=== PATIENT | female | born 1930 | race Caucasian/White ===

== ENCOUNTER 2020-01-07 11:27 | Inpatient (IN) | payer MEDICARE ==
[2020-01-07] MEDS ORDERED: Polyethylene Glycol 3350 Powder 17 GM Packet PO PRN (14:40)
[2020-01-07] MEDS ORDERED: Sodium Chloride 0.9% 10 ML Syringe FLUSH PRN (14:40)
[2020-01-07] MEDS ORDERED: Ondansetron 4 MG/2 ML SDV IV PRN (14:40)
[2020-01-07] MEDS ORDERED: Acetaminophen 325 MG Tab PO PRN (14:40)
[2020-01-07] MEDS ORDERED: Sodium Chloride 0.9% 1,000 ML IV SCH (14:45)
[2020-01-07] MEDS ORDERED: Non-Formulary Medication 1 Each (Melatonin/Pyridoxine Hcl (B6) [Melatonin 3 Mg Tablet] 3 M PO PRN (15:00)
[2020-01-07] MEDS ORDERED: Melatonin 3 MG Tab PO PRN (15:06)
--- NOTE | 2020-01-07 15:26 | PCM.HP.2 ---
H&P History of Present Illness - General Date of Service: 01/07/20 Admit Problem/Dx: Admission Diagnosis/Problem Admission Diagnosis/Problem Anemia Source of Information: Patient, Old Records, Provider, RN Notes Reviewed History Limitations: Reports: No Limitations - History of Present Illness Initial Comments - Free Text/Narative: Ms. Villafuerte is an 89-year-old woman who was admitted [facility] a [facility] for further evaluation and management of anemia. Was recently hospitalized in [place] with sepsis and associated organ dysfunction. 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 During her hospitalization there was noted to have pancytopenia, thought to be somewhat secondary to anaplasmosis, although further evaluation was recommended. Laboratory studies were obtained today and she was found to have a hemoglobin of 5.4 which is a significant drop from her discharge level. Platelet count had actually improved to 39,000 and white blood cell count remains low. She denies recent hematemesis, hematuria, melena, or hematochezia. She does feel somewhat weak and lightheaded and more short of breath than usual. Appetite is been good and she denies fever or chills. - Related Data Allergies/Adverse Reactions: Allergies Allergy/AdvReac Type Severity Reaction Status Date / Time No Known Allergies Allergy Verified 01/07/20 14:52 Home Medications: Home Meds Acetaminophen [Tylenol] 650 mg PO TID 01/07/20 [History] Alendronate Sodium 70 mg PO Q7D 01/07/20 [History] Amiodarone [Cordarone] 200 mg PO DAILY 01/07/20 [History] Aspirin [Halfprin] 81 mg pe PO DAILY 01/07/20 [History] Calcium Carbonate [Calcium] 600 mg PO BID 01/07/20 [History] Doxycycline [Doxycycline Hyclate] 100 mg PO Q12HR 01/07/20 [History] Ergocalciferol (Vitamin D2) [Vitamin D2] 50,000 units PO Q7D 01/07/20 [History] Meclizine [Antivert] 12.5 mg PO QID PRN 01/07/20 [History] Melatonin/Pyridoxine HCl (B6) [Melatonin 3 mg Tablet] 3 mg PO BEDTIME PRN [History] Nitroglycerin [Nitrostat] 0.4 mg SL ASDIRECTED PRN 01/07/20 [History] Omeprazole 20 mg PO DAILY 01/07/20 [History] atorvaSTATin [Lipitor] 80 mg PO BEDTIME 01/07/20 [History] Past Medical History HEENT History: Reports: Cataract, Impaired Vision Cardiovascular History: Reports: [place], Stents Respiratory History: Reports: Pneumonia, Recurrent Gastrointestinal History: Reports: None FRENCH BINDER History: Reports: Musculoskeletal History: Reports: Arthritis, Fracture - Past Surgical History HEENT Surgical History: Reports: Cataract Surgery Other HEENT Surgeries/Procedures: Cataract in both eyes Respiratory Surgical History: Reports: None GI Surgical History: Reports: None Social & Family History - Tobacco Use Smoking Status *Q: Former Smoker Years of Tobacco use: 73 Packs/Tins Daily: 0.5 Used Tobacco, but Quit: Yes Month/Year Tobacco Last Used: 2016 Second Hand Smoke Exposure: No - Caffeine Use Caffeine Use: Reports: Coffee, Tea - Recreational Drug Use Recreational Drug Use: No H&P Review of Systems - Review of Systems: Review Of Systems: See Below General: Reports: Malaise, Weakness. Denies: Fever, Chills HEENT: Reports: No Symptoms Pulmonary: Reports: Shortness of Breath. Denies: Wheezing, Pleuritic Chest Pain , Cough, Sputum, Hemoptysis Cardiovascular: Reports: Dyspnea on Exertion, Edema, Lightheadedness. Denies: Chest Pain, Palpitations, Orthopnea, PND, Syncope Gastrointestinal: Reports: No Symptoms Genitourinary: Reports: No Symptoms Musculoskeletal: Reports: No Symptoms Skin: Reports: No Symptoms Psychiatric: Reports: No Symptoms Neurological: Reports: No Symptoms Hematologic/Lymphatic: Reports: No Symptoms Immunologic: Reports: No Symptoms Exam - Exam Exam: See Below - Vital Signs Vital Signs: Last Vital Signs Temp 97.7 F 01/07/20 14:40 Pulse 79 01/07/20 14:40 Resp 18 01/07/20 14:40 BP 107/55 L 01/07/20 14:40 Pulse Ox 94 L 01/07/20 14:40 - Exam Quality Assessment: DVT Prophylaxis General: Alert, Oriented, Cooperative, Mild Distress HEENT: Conjunctiva Clear, Hearing Intact, Mucosa Moist & [place], Normal Nasal Septum, Posterior Pharynx Clear, Pupils Equal Neck: Supple, Trachea Midline, +2 Carotid Pulse wo Bruit Lungs: Clear to Auscultation, Normal Respiratory Effort Cardiovascular: Regular Rate, Regular Rhythm, Normal S1, Normal S2. No: Systolic Murmur, Diastolic Murmur GI/Abdominal Exam: Soft, Non-Tender, No Organomegaly, No Distention Back Exam: Normal Inspection, Full Range of Motion Extremities: Non-Tender, Pedal Edema Skin: Warm, Dry, Intact Neurological: Cranial Nerves Intact, Strength Equal Bilateral, Normal Speech, Normal Tone, Sensation Intact. No: Focal Deficit Neuro Extensive - Mental Status: Alert, Oriented x3, Normal Mood/Affect, Normal Cognition, Memory Intact - Patient Data Lab Results Last 24 hrs: Laboratory Results - last 24 hr 01/07/20 01/07/20 01/07/20 Range/Units 11:33 11:33 15:05 WBC 2.7 L (4.5-11.0) K/uL RBC 1.74 L (3.30-5.50) M/uL Hgb 5.4 L* (12.0-15.0) g/dL Hct 17.6 L (36.0-48.0) % MCV 101 H (80-98) fL MCH 31 (27-31) pg MCHC 31 L (32-36) % Plt Count 39 L (150-400) K/uL Percent Retic 1.1 (0.5-1.5) % Sodium 145 (140-148) mmol/L Potassium 3.6 (3.6-5.2) mmol/L Chloride 107 (100-108) mmol/L Carbon Dioxide 28 (21-32) mmol/L Anion Gap 10.0 (5.0-14.0) mmol/L BUN 43 H (7-18) mg/dL Creatinine 1.9 H (0.6-1.0) mg/dL Est Cr Clr Drug Dosing TNP Estimated GFR (MDRD) 25 L (>60) Glucose 103 (74-106) mg/dL Calcium 6.4 L* (8.5-10.1) mg/dL Result Diagrams: 01/07/20 11:33 01/07/20 15:05 Sepsis Event Note - Focused Exam Vital Signs: Vital Signs Temp Pulse Resp BP Pulse Ox 01/07/20 14:40 97.7 F 79 18 107/55 L 94 L Date Exam was Performed: 01/07/20 Time Exam was Performed: 17:36 *Q Meaningful Use (ADM) - VTE *Q VTE Pharmacological Contraindications *Q: Active Hemorrhage - VTE Risk Assess *Q Each Risk Factor Represents 1 Point: None Total Score 1 Point Risk Factors: 0 Each Risk Factor Represents 2 Points: None Total Score 2 Point Risk Factors: 0 Each Risk Factor Represents 3 Points: Age 75 Years or Greater Total Score 3 Point Risk Factors: 3 Each Risk Factor Represents 5 Points: None Total Score 5 Point Risk Factors: 0 Venous Thromboembolism Risk Factor Score *Q: 3 Problem List Initiated/Reviewed/Updated: Yes Orders Last 24hrs: Active Orders 24 hr Category Date Time Status Patient Status [ADT] Routine ADT 01/07/20 14:40 Active Ambulate [RC] QID Care 01/07/20 14:40 Active Height and Weight [RC] DAILY Care 01/07/20 14:40 Active Intake and Output [RC] QSHIFT Care 01/07/20 14:40 Active Notify Provider Vital Signs [RC] ASDIRECTED Care 01/07/20 14:40 Active Oxygen Therapy [RC] PRN Care 01/07/20 14:40 Active Peripheral IV Care [RC] . DIRECTED Care 01/07/20 14:42 Active Up With Assistance [RC] ASDIRECTED Care 01/07/20 14:40 Active Up to Chair [RC] QID Care 01/07/20 14:40 Active VTE/DVT Education [RC] Per Unit Routine Care 01/07/20 14:40 Active Vital Signs [RC] Q4H Care 01/07/20 14:40 Active PT Evaluation and Treatment [CONS] Routine Cons 01/07/20 14:40 Active Clear Liquid Diet [DIET] Diet 01/07/20 Lunch Active BASIC METABOLIC PANEL,BMP [CHEM] Timed Lab 01/08/20 05:00 Ordered CBC WITH AUTO DIFF [HEME] AM Lab 01/08/20 05:11 Ordered COMPREHENSIVE METABOLIC PN,CMP [CHEM] Stat Lab 01/07/20 15:05 Received FERRITIN [CHEM] Stat Lab 01/07/20 15:05 Received FOLIC ACID [CHEM] Stat Lab 01/07/20 15:05 Received HGB [HEMOGLOBIN] [HEME] Stat Lab 01/07/20 22:00 Ordered IRON/TIBC [CHEM] Stat Lab 01/07/20 15:05 Received LACTATE DEHYDROGENASE,LDH [CHEM] Stat Lab 01/07/20 15:05 Received RED BLOOD CELLS LP [BBK] Stat Lab 01/07/20 14:44 Ordered TYPE AND SCREEN [BBK] Stat Lab 01/07/20 14:44 Ordered VITAMIN B12 [CHEM] Stat Lab 01/07/20 15:05 Received Acetaminophen [Tylenol] Med 01/07/20 14:40 Active 650 mg PO Q4H PRN Amiodarone [Cordarone] Med 01/08/20 09:00 Active 200 mg PO DAILY Calcium Gluconate 2 gm Med 01/07/20 15:24 Ordered Sodium Chloride 0.9% [Normal Saline] 100 ml IV ONETIME Doxycycline [Vibramycin] Med 01/07/20 21:00 Active 100 mg PO BID Melatonin Med 01/07/20 15:06 Active 3 mg PO BEDTIME PRN Ondansetron [Zofran] Med 01/07/20 14:40 Active 4 mg IV Q4H PRN Pantoprazole [ProTONIX IV] Med 01/07/20 16:00 Active 40 mg IV Q12H Sodium Chloride 0.9% [Normal Saline] 1,000 ml Med 01/07/20 14:45 Active IV ASDIRECTED Sodium Chloride 0.9% [Saline Flush] Med 01/07/20 14:40 Active 10 ml FLUSH ASDIRECTED PRN atorvaSTATin [Lipitor] Med 01/07/20 21:00 Active 80 mg PO BEDTIME polyethylene glycoL 3350 [MiraLAX] Med 01/07/20 14:40 Active 17 gm PO DAILY PRN Peripheral IV Insertion Adult [OM.PC] Routine Oth 01/07/20 14:40 Ordered Sequential Compression Device [OM.PC] Per Unit Routine Oth 01/07/20 14:41 Ordered Transfuse Red Blood Cells [COMM] Stat Oth 01/07/20 14:44 Ordered VTE Pharmacological Contraindications [AST] Per Unit Oth 01/07/20 14:40 Ordered Routine Resuscitation Status Routine Resus Stat 01/07/20 14:40 Ordered Medication Orders Acetaminophen (Tylenol) 650 mg PO Q4H PRN PRN Reason: Pain (Mild 1-3)/fever Amiodarone HCl (Cordarone) 200 mg PO DAILY PIETRO Atorvastatin Calcium (Lipitor) 80 mg PO BEDTIME PIETRO Doxycycline Hyclate (Vibramycin) 100 mg PO BID PIETRO Sodium Chloride (Normal Saline) 1,000 mls @ 75 mls/hr IV ASDIRECTED PIETRO Calcium Gluconate 2 gm/ Sodium (Chloride) 120 mls @ 100 mls/hr IV ONETIME ONE Stop: 01/07/20 16:35 Melatonin (Melatonin) 3 mg PO BEDTIME PRN PRN Reason: SLEEP Ondansetron HCl (Zofran) 4 mg IV Q4H PRN PRN Reason: Nausea/Vomiting Pantoprazole Sodium (Protonix Iv) 40 mg IV Q12H PIETRO Polyethylene Glycol (Miralax) 17 gm PO DAILY PRN PRN Reason: Constipation Sodium Chloride (Saline Flush) 10 ml FLUSH ASDIRECTED PRN PRN Reason: Keep Vein Open Assessment/Plan Comment:: ASSESSMENT AND PLAN SEVERE ANEMIA-hemoglobin of 5.4 today. Anemia noted during recent hospitalization for sepsis, but not severe is noted today. It is present in the setting of pancytopenia with associated thrombocytopenia and leukopenia. Reticulocyte count is low, iron levels, B12, and folic acid within normal range. Suspect underlying myelodysplastic syndrome. No evidence of recent bleeding or hemolysis. -Transfuse 1 unit of red blood cells -1 unit of red blood cells on hold -Recheck hemoglobin level after transfusion -IV fluids for hydration PANCYTOPENIA-as above -Outpatient follow-up with hematology RECENT HOSPITALIZATION FOR SEPSIS/ANAPLASMOSIS-she currently is afebrile, no evidence of active infection MAINTENANCE ISSUES -DVT prophylaxis; SCUDs, hold on anticoagulation because of thrombocytopenia and anemia -GI prophylaxis; Protonix -Mayo catheter; not indicated -Nutrition; regular diet -Nicotine dependence; not required CODE STATUS-FULL CODE ADMISSION STATUS-patient will be admitted to inpatient status, expect at least a 2 night hospital stay for evaluation and management of problems as outlined above. At the time of this admission I do not reasonably expected evaluation and management of this problem will require more than a 96 hour hospital stay. DISPOSITION-anticipate discharge to home after the hospital stay. PRIMARY CARE PROVIDER-Dr. Gonzalez - Mortality Measure Prognosis:: Good
[2020-01-07] MEDS ORDERED: Calcium Gluconate 2 GM in Sodium Chloride 0.9% 100 ML IV ONE ×2 (16:00→22:00)
[2020-01-07] MEDS: Pantoprazole 40 MG Vial IV SCH (18:03)
[2020-01-07] MEDS ORDERED: Albuterol/Ipratropium 3.0-0.5 MG/3 ML Neb Soln NEB PRN (19:12)
[2020-01-07] MEDS ORDERED: Non-Formulary Medication 1 Each (Atorvastatin [Lipitor] 80 MG) PO SCH (21:00)
[2020-01-07] MEDS: atorvaSTATin 20 MG Tab PO SCH (21:14)
[2020-01-07] MEDS: Doxycycline 100 MG Cap PO SCH (21:14)
[2020-01-07] MEDS: Benzonatate 100 MG Cap PO PRN (21:28)
--- NOTE | 2020-01-08 02:11 | PCM.SN.2 ---
- Free Text/Narrative Note: January 07, 2020 at 22:40 call from [address] [place] [address] O: 2200 recheck of hemoglobin is 7.3 vital signs 36.3-61-16 B\P 107/43 A: anemia P: give one unit of RBC hold IV fluids while blood transfusion is infusing recheck hemoglobin in am.
[2020-01-08] MEDS: Pantoprazole 40 MG Vial IV SCH ×2 (03:05→16:50)
[2020-01-08] MEDS ORDERED: Calcium Gluconate 2 GM in Sodium Chloride 0.9% 100 ML IV ONE (05:43)
[2020-01-08] MEDS: Doxycycline 100 MG Cap PO SCH ×2 (08:37→20:31)
[2020-01-08] MEDS: Amiodarone 200 MG Tab PO SCH (08:37)
[2020-01-08] MEDS: Lactobacillus Rhamnosus GG (Probiotic) Cap PO SCH ×2 (13:20→20:31)
[2020-01-08] MEDS ORDERED: Dimethicone 20%/Zinc Oxide 25% 56 GM Spray Bottle TOP PRN (13:22)
[2020-01-08] MEDS ORDERED: Atropine/Diphenoxylate 0.025-2.5 MG Tab PO PRN (14:40)
--- NOTE | 2020-01-08 14:47 | PCM.PN ---
- General Info Date of Service: 01/08/20 Subjective Update: Ms. Villafuerte has felt moderately improved since admission. Nausea vomiting has resolved, she continues to have watery diarrhea. Hemoglobin stable following transfusion of 2 units of red blood cells yesterday, continues to experience thrombocytopenia and leukopenia. Functional Status: Reports: Tolerating Diet, Ambulating, Urinating - Review of Systems General: Reports: Weakness. Denies: Fever, Chills Pulmonary: Reports: No Symptoms Cardiovascular: Reports: No Symptoms Gastrointestinal: Reports: No Symptoms - Patient Data Vitals - Most Recent: Last Vital Signs Temp 97.2 F 01/08/20 10:58 Pulse 60 01/08/20 10:58 Resp 16 01/08/20 10:58 BP 141/55 H 01/08/20 10:58 Pulse Ox 97 01/08/20 10:58 Weight - Most Recent: 170 lb I&O - Last 24 Hours: Intake & Output 01/07/20 01/08/20 01/08/20 22:59 06:59 14:59 Intake Total 689 1020 800 Balance 689 1020 800 Lab Results Last 24 Hours: Laboratory Results - last 24 hr 01/07/20 01/07/20 01/07/20 Range/Units 15:05 15:05 15:05 WBC (4.5-11.0) K/uL RBC (3.30-5.50) M/uL Hgb (12.0-15.0) g/dL Hct (36.0-48.0) % MCV (80-98) fL MCH (27-31) pg MCHC (32-36) % Plt Count (150-400) K/uL Neut % (Auto) (36-66) % Lymph % (Auto) (24-44) % [place] % (Auto) (2-6) % Eos % (Auto) (2-4) % Baso % (Auto) (0-1) % Percent Retic 1.1 (0.5-1.5) % Sodium 145 (140-148) mmol/L Potassium 3.6 (3.6-5.2) mmol/L Chloride 108 (100-108) mmol/L Carbon Dioxide 29 (21-32) mmol/L Anion Gap 8.3 (5.0-14.0) mmol/L BUN 45 H (7-18) mg/dL Creatinine 1.9 H (0.6-1.0) mg/dL Est Cr Clr Drug Dosing TNP Estimated GFR (MDRD) 25 L (>60) Glucose 107 H (74-106) mg/dL Calcium 6.5 L* (8.5-10.1) mg/dL POC WB Ioniz Calcium (1.12-1.32) mmol/L Iron (50-170) ug/dL TIBC (250-450) ug/dl % Saturation (20-55) % Ferritin 789 H (8-388) ng/ml Total Bilirubin 0.8 (0.2-1.0) mg/dL AST 38 H (15-37) U/L ALT 55 (12-78) U/L Alkaline Phosphatase 96 (46-116) U/L Lactate Dehydrogenase 492 H (82-234) U/L Total Protein 5.5 L (6.4-8.2) g/dL Albumin 2.2 L (3.4-5.0) g/dL Globulin 3.3 (2.3-3.5) g/dL Albumin/Globulin Ratio 0.7 L (1.2-2.2) Vitamin B12 > 2000 H (193-986) pg/ml Folate 11.8 (8.6-58.9) ng/ml Blood Type Gel Antibody Screen Crossmatch 01/07/20 01/07/20 01/07/20 Range/Units 15:05 15:05 22:15 WBC (4.5-11.0) K/uL RBC (3.30-5.50) M/uL Hgb 7.3 L (12.0-15.0) g/dL Hct (36.0-48.0) % MCV (80-98) fL MCH (27-31) pg MCHC (32-36) % Plt Count (150-400) K/uL Neut % (Auto) (36-66) % Lymph % (Auto) (24-44) % [place] % (Auto) (2-6) % Eos % (Auto) (2-4) % Baso % (Auto) (0-1) % Percent Retic (0.5-1.5) % Sodium (140-148) mmol/L Potassium (3.6-5.2) mmol/L Chloride (100-108) mmol/L Carbon Dioxide (21-32) mmol/L Anion Gap (5.0-14.0) mmol/L BUN (7-18) mg/dL Creatinine (0.6-1.0) mg/dL Est Cr Clr Drug Dosing Estimated GFR (MDRD) (>60) Glucose (74-106) mg/dL Calcium (8.5-10.1) mg/dL POC WB Ioniz Calcium (1.12-1.32) mmol/L Iron 74 (50-170) ug/dL TIBC 278 (250-450) ug/dl % Saturation 27 (20-55) % Ferritin (8-388) ng/ml Total Bilirubin (0.2-1.0) mg/dL AST (15-37) U/L ALT (12-78) U/L Alkaline Phosphatase (46-116) U/L Lactate Dehydrogenase (82-234) U/L Total Protein (6.4-8.2) g/dL Albumin (3.4-5.0) g/dL Globulin (2.3-3.5) g/dL Albumin/Globulin Ratio (1.2-2.2) Vitamin B12 (193-986) pg/ml Folate (8.6-58.9) ng/ml Blood Type O POSITIVE Gel Antibody Screen Negative Crossmatch See Detail 01/08/20 01/08/20 01/08/20 Range/Units 04:00 04:00 04:46 WBC 2.7 L (4.5-11.0) K/uL RBC 2.68 L (3.30-5.50) M/uL Hgb 8.2 L (12.0-15.0) g/dL Hct 25.3 L (36.0-48.0) % MCV 94 (80-98) fL MCH 31 (27-31) pg MCHC 32 (32-36) % Plt Count 47 L (150-400) K/uL Neut % (Auto) 38 (36-66) % Lymph % (Auto) 52 H (24-44) % [place] % (Auto) 9 H (2-6) % Eos % (Auto) 1 L (2-4) % Baso % (Auto) 1 (0-1) % Percent Retic (0.5-1.5) % Sodium 146 (140-148) mmol/L Potassium 3.6 (3.6-5.2) mmol/L Chloride 111 H (100-108) mmol/L Carbon Dioxide 26 (21-32) mmol/L Anion Gap 12.6 (5.0-14.0) mmol/L BUN 37 H (7-18) mg/dL Creatinine 1.7 H (0.6-1.0) mg/dL Est Cr Clr Drug Dosing 19.75 Estimated GFR (MDRD) 28 L (>60) Glucose 88 (74-106) mg/dL Calcium 7.1 L (8.5-10.1) mg/dL POC WB Ioniz Calcium 1.02 L (1.12-1.32) mmol/L Iron (50-170) ug/dL TIBC (250-450) ug/dl % Saturation (20-55) % Ferritin (8-388) ng/ml Total Bilirubin (0.2-1.0) mg/dL AST (15-37) U/L ALT (12-78) U/L Alkaline Phosphatase (46-116) U/L Lactate Dehydrogenase (82-234) U/L Total Protein (6.4-8.2) g/dL Albumin (3.4-5.0) g/dL Globulin (2.3-3.5) g/dL Albumin/Globulin Ratio (1.2-2.2) Vitamin B12 (193-986) pg/ml Folate (8.6-58.9) ng/ml Blood Type Gel Antibody Screen Crossmatch [place] Results Last 24 Hours: Microbiology 01/08/20 12:14 Clostridioides difficile (PCR) - Final Stool / Feces 01/08/20 12:14 Stool for WBCs - Final Stool / Feces Med Orders - Current: Current Medications Acetaminophen (Tylenol) 650 mg PO Q4H PRN PRN Reason: Pain (Mild 1-3)/fever Albuterol/Ipratropium (Duoneb 3.0-0.5 Mg/3 Ml) 3 ml NEB Q4H PRN PRN Reason: Shortness of Breath Last Admin: 01/07/20 21:29 Dose: 3 ml Amiodarone HCl (Cordarone) 200 mg PO DAILY PIETRO Last Admin: 01/08/20 08:37 Dose: 200 mg Atorvastatin Calcium (Lipitor) 80 mg PO BEDTIME PIETRO Last Admin: 01/07/20 21:14 Dose: 80 mg Benzonatate (Tessalon Perles) 100 mg PO TID PRN PRN Reason: Cough Last Admin: 01/07/20 21:28 Dose: 100 mg Dimethicone/Zinc Oxide (Rash Relief-Zinc Oxide [place]) 0 gm TOP ASDIRECTED PRN PRN Reason: Inflammation Diphenoxylate HCl/Atropine (Lomotil 0.025-2.5 Mg) 1 tab PO QID PRN PRN Reason: Diarrhea Doxycycline Hyclate (Vibramycin) 100 mg PO BID [facility] Last Admin: 01/08/20 08:37 Dose: 100 mg Lactobacillus Rhamnosus (Culturelle) 1 cap PO BID [facility] Last Admin: 01/08/20 13:20 Dose: 1 cap Melatonin (Melatonin) 3 mg PO BEDTIME PRN PRN Reason: SLEEP Ondansetron HCl (Zofran) 4 mg IV Q4H PRN PRN Reason: Nausea/Vomiting Pantoprazole Sodium (Protonix Iv) 40 mg IV Q12H [facility] Last Admin: 01/08/20 03:05 Dose: 40 mg Polyethylene Glycol (Miralax) 17 gm PO DAILY PRN PRN Reason: Constipation Sodium Chloride (Saline Flush) 10 ml FLUSH ASDIRECTED PRN PRN Reason: Keep Vein Open Discontinued Medications Sodium Chloride (Normal Saline) 1,000 mls @ 75 mls/hr IV ASDIRECTED [facility] Calcium Gluconate 2 gm/ Sodium (Chloride) 120 mls @ 90 mls/hr IV ONETIME ONE Stop: 01/07/20 17:19 Last Admin: 01/07/20 16:24 Dose: 90 mls/hr Calcium Gluconate 2 gm/ Sodium (Chloride) 120 mls @ 100 mls/hr IV ONETIME ONE Stop: 01/07/20 23:11 Last Admin: 01/07/20 21:28 Dose: 100 mls/hr Calcium Gluconate 2 gm/ Sodium (Chloride) 120 mls @ 100 mls/hr IV ONETIME ONE Stop: 01/08/20 06:54 Last Admin: 01/08/20 06:12 Dose: 100 mls/hr - Exam Quality Assessment: DVT Prophylaxis General: Alert, Oriented, Cooperative, Mild Distress Lungs: Clear to Auscultation, Normal Respiratory Effort Cardiovascular: Regular Rate, Regular Rhythm, No Murmurs GI/Abdominal Exam: Soft, Non-Tender, No Organomegaly, No Distention Extremities: Non-Tender, Pedal Edema Sepsis Event Note - Evaluation Sepsis Screening Result: No Definite Risk - Focused Exam Vital Signs: Vital Signs Temp Pulse Resp BP Pulse Ox 01/08/20 10:58 97.2 F 60 16 141/55 H 97 01/08/20 07:17 96.3 F L 60 16 142/62 H 96 Date Exam was Performed: 01/08/20 Time Exam was Performed: 14:42 - Problem List Review Problem List Initiated/Reviewed/Updated: Yes - My Orders Last 24 Hours: My Active Orders 01/07/20 14:40 Patient Status [ADT] Routine Ambulate [RC] QID Height and Weight [RC] DAILY Intake and Output [RC] QSHIFT Notify Provider Vital Signs [RC] ASDIRECTED Oxygen Therapy [RC] PRN Up With Assistance [RC] ASDIRECTED Up to Chair [RC] QID VTE/DVT Education [RC] Per Unit Routine Vital Signs [RC] Q4H PT Evaluation and Treatment [CONS] Routine Acetaminophen [Tylenol] 650 mg PO Q4H PRN Ondansetron [Zofran] 4 mg IV Q4H PRN Sodium Chloride 0.9% [Saline Flush] 10 ml FLUSH ASDIRECTED PRN polyethylene glycoL 3350 [MiraLAX] 17 gm PO DAILY PRN Peripheral IV Insertion Adult [OM.PC] Routine VTE Pharmacological Contraindications [AST] Per Unit Routine Resuscitation Status Routine 01/07/20 14:41 Sequential Compression Device [OM.PC] Per Unit Routine 01/07/20 14:42 Peripheral IV Care [RC] Q12H 01/07/20 15:06 Melatonin 3 mg PO BEDTIME PRN 01/07/20 16:00 Pantoprazole [ProTONIX IV] 40 mg IV Q12H 01/07/20 21:00 Doxycycline [Vibramycin] 100 mg PO BID atorvaSTATin [Lipitor] 80 mg PO BEDTIME 01/08/20 09:00 Amiodarone [Cordarone] 200 mg PO DAILY 01/08/20 12:14 CULTURE STOOL + SHIGATOX [RM] Routine Clostridium [CLOS DIFFICILE PCR W/REFLEX] [RM] Stat 01/08/20 12:30 Lactobacillus Rhamnosus GG [Culturelle] 1 cap PO BID 01/08/20 13:22 Dimethicone/Zinc Oxide [Rash Relief-Zinc Oxide [place]] 0 gm TOP ASDIRECTED PRN 01/08/20 14:40 Atropine/Diphenoxylate [Lomotil 0.025-2.5 MG] 1 tab PO QID PRN 01/08/20 Lunch Regular Diet [DIET] 01/09/20 05:00 BASIC METABOLIC PANEL,BMP [CHEM] Timed CALCIUM, IONIZED, SERUM Routine CBC WITH AUTO DIFF [HEME] Timed - Plan Plan:: ASSESSMENT AND PLAN SEVERE ANEMIA-persistent pancytopenia, hemoglobin improved following transfusion of 2 units of red blood cells -Recheck hemoglobin in a.m. NAUSEA VOMITING WITH DIARRHEA-nausea vomiting have resolved, she continues to experience watery diarrhea. Cultures are pending, C. difficile and white blood cell count are within normal range. -Lomotil 4 times daily as needed PANCYTOPENIA-as above -Outpatient follow-up with hematology RECENT HOSPITALIZATION FOR SEPSIS/ANAPLASMOSIS-she currently is afebrile, no evidence of active infection MAINTENANCE ISSUES -DVT prophylaxis; SCUDs, hold on anticoagulation because of thrombocytopenia and anemia -GI prophylaxis; Protonix -Mayo catheter; not indicated -Nutrition; regular diet -Nicotine dependence; not required CODE STATUS-FULL CODE ADMISSION STATUS-patient will be admitted to inpatient status, expect at least a 2 night hospital stay for evaluation and management of problems as outlined above. At the time of this admission I do not reasonably expected evaluation and management of this problem will require more than a 96 hour hospital stay. DISPOSITION-anticipate discharge to home after the hospital stay. PRIMARY CARE PROVIDER-Dr. Gonzalez
[2020-01-08] MEDS: Benzonatate 100 MG Cap PO PRN (20:31)
[2020-01-08] MEDS: atorvaSTATin 20 MG Tab PO SCH (20:31)
[2020-01-09] MEDS: Pantoprazole 40 MG Vial IV SCH (04:16)
[2020-01-09] MEDS: Amiodarone 200 MG Tab PO SCH (08:21)
[2020-01-09] MEDS: Lactobacillus Rhamnosus GG (Probiotic) Cap PO SCH (08:21)
[2020-01-09] MEDS: Doxycycline 100 MG Cap PO SCH (08:21)
--- NOTE | 2020-01-09 13:10 | PCM.DCSUM1 ---
Discharge Summary - Hospital Course Brief History: Ms. Villafuerte is an 89-year-old woman who was admitted as a direct admission from the half-way for further management of weakness and lightheadedness secondary to severe anemia. - Discharge Data Discharge Date: 01/09/20 Discharge Disposition: Home, Self-Care 01 Condition: Fair - Referral to Home Health Primary Care Physician: PCP None - Discharge Diagnosis/Problem(s) (1) Pancytopenia SNOMED Code(s): 554857032 ICD Code: D61.818 - OTHER PANCYTOPENIA Status: Acute Current Visit: Yes (2) CKD (chronic kidney disease) stage 3, GFR 30-59 ml/min SNOMED Code(s): 899072138 ICD Code: N18.3 - CHRONIC KIDNEY DISEASE, STAGE 3 (MODERATE) Status: Acute Current Visit: Yes (3) Diarrhea SNOMED Code(s): 94048628 ICD Code: R19.7 - DIARRHEA, UNSPECIFIED Status: Acute Current Visit: Yes (4) Anemia SNOMED Code(s): 522995219 ICD Code: D64.9 - ANEMIA, UNSPECIFIED Status: Acute Current Visit: Yes - Patient Summary/Data Consults: Consultations 01/07/20 14:40 PT Evaluation and Treatment [CONS] Routine Please Evaluate and Treat. PT Reason for Consult: weakness This query below is only for informational purposes and is not editable. Hospital Course: Ms. Villafuerte is an 89-year-old woman who was admitted as a direct admission from the half-way for further evaluation and management of anemia. Was recently hospitalized in [place] with sepsis and associated organ dysfunction. 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 During her hospitalization there was noted to have pancytopenia, thought to be somewhat secondary to anaplasmosis, although further evaluation was recommended. Laboratory studies were obtained today and she was found to have a hemoglobin of 5.4 which is a significant drop from her discharge level. Platelet count had actually improved to 39,000 and white blood cell count remains low. She denies recent hematemesis, hematuria, melena, or hematochezia. She does feel somewhat weak and lightheaded and more short of breath than usual. Appetite is been good and she denies fever or chills. On admission she was given IV fluids for hydration and transfused 1 unit of red blood cells. Hemoglobin did improve to 7.4, because of her ongoing pancytopenia and decision was made to transfuse 1 additional units of red blood cells, as it was felt that she would quickly become severely anemic again. She felt improved following transfusion with resolution of lightheadedness and weakness. She did have some ongoing difficulty with diarrhea during hospitalization. Stool studies were obtained in addition to C. difficile, all were found to be negative. She was started on Lomotil with good control of the diarrhea by the time of discharge. Activity will be as tolerated and she will resume her usual diet. Follow-up hemoglobin level will be obtained on December 13. Outpatient hematology consult will be scheduled for follow-up evaluation and management of her pancytopenia. - Patient Instructions Diet: Usual Diet as Tolerated Activity: As Tolerated Other/Special Instructions: Please schedule hematology consult for further evaluation and management of pancytopenia. Apply barrier cream to perianal area 4 times daily as needed. Check hemoglobin level on January 13. - Discharge Plan *PRESCRIPTION DRUG MONITORING PROGRAM REVIEWED*: Not Applicable *COPY OF PRESCRIPTION DRUG MONITORING REPORT IN PATIENT [facility]: Not Applicable Prescriptions/Med Rec: Diphenoxylate HCl/Atropine [Lomotil Tablet] 1 each PO QID PRN #30 tablet PRN Reason: Diarrhea Lactobacillus Rhamnosus GG [Culturelle] 1 cap PO BID #60 cap Home Medications: Home Meds Acetaminophen [Tylenol] 650 mg PO TID 01/07/20 [History] Alendronate Sodium 70 mg PO Q7D 01/07/20 [History] Amiodarone [Cordarone] 200 mg PO DAILY 01/07/20 [History] Aspirin [Halfprin] 81 mg pe PO DAILY 01/07/20 [History] Calcium Carbonate [Calcium] 600 mg PO BID 01/07/20 [History] Doxycycline [Vibra-Tabs] 100 mg PO Q12HR 01/07/20 [History] Ergocalciferol (Vitamin D2) [Vitamin D2] 50,000 units PO Q7D 01/07/20 [History] Meclizine [Antivert] 12.5 mg PO QID PRN 01/07/20 [History] Melatonin/Pyridoxine HCl (B6) [Melatonin 3 mg Tablet] 3 mg PO BEDTIME PRN [History] Nitroglycerin [Nitrostat] 0.4 mg SL ASDIRECTED PRN 01/07/20 [History] Omeprazole 20 mg PO DAILY 01/07/20 [History] atorvaSTATin [Lipitor] 80 mg PO BEDTIME 01/07/20 [History] Diphenoxylate HCl/Atropine [Lomotil Tablet] 1 each PO QID PRN #30 tablet [Rx] Lactobacillus Rhamnosus GG [Culturelle] 1 cap PO BID #60 cap 01/09/20 [Rx] Referrals: Shanique Weeks MD [Ordering Only Provider] - 01/24/20 3:00 pm () - Discharge Summary/Plan Comment DC Time >30 min.: No - Patient Data Vitals - Most Recent: Last Vital Signs Temp 97.5 F 01/09/20 11:16 Pulse 65 01/09/20 11:16 Resp 16 01/09/20 11:16 BP 132/59 L 01/09/20 11:16 Pulse Ox 97 01/09/20 11:16 Weight - Most Recent: 172 lb 3.2 oz I&O - Last 24 hours: Intake & Output 01/08/20 01/09/20 01/09/20 22:59 06:59 14:59 Intake Total 240 900 360 Balance 240 900 360 Lab Results - Last 24 hrs: Laboratory Results - last 24 hr 01/07/20 01/09/20 01/09/20 Range/Units 15:05 06:00 06:00 WBC 3.3 L (4.5-11.0) K/uL RBC 2.73 L (3.30-5.50) M/uL Hgb 8.6 L (12.0-15.0) g/dL Hct 26.1 L (36.0-48.0) % MCV 96 (80-98) fL MCH 32 H (27-31) pg MCHC 33 (32-36) % Plt Count 47 L (150-400) K/uL Neut % (Auto) 40 (36-66) % Lymph % (Auto) 48 H (24-44) % [place] % (Auto) 10 H (2-6) % Eos % (Auto) 1 L (2-4) % Baso % (Auto) 2 H (0-1) % Sodium 144 (140-148) mmol/L Potassium 3.6 (3.6-5.2) mmol/L Chloride 109 H (100-108) mmol/L Carbon Dioxide 27 (21-32) mmol/L Anion Gap 11.6 (5.0-14.0) mmol/L BUN 34 H (7-18) mg/dL Creatinine 1.7 H (0.6-1.0) mg/dL Est Cr Clr Drug Dosing 19.75 mL/min Estimated GFR (MDRD) 28 L (>60) Glucose 94 (74-106) mg/dL Calcium 7.3 L (8.5-10.1) mg/dL Crossmatch See Detail [facility] Results - Last 24 hrs: Microbiology 01/08/20 12:14 Shiga Toxin I - Final Stool / Feces NEGATIVE FOR SHIGA TOXIN 1 Shiga Toxin II - Final NEGATIVE FOR SHIGA TOXIN 2 REFERENCE RANGE: NEGATIVE Clostridioides difficile (PCR) - Final 01/08/20 12:14 Stool for WBCs - Final Stool / Feces Med Orders - Current: Current Medications Acetaminophen (Tylenol) 650 mg PO Q4H PRN PRN Reason: Pain (Mild 1-3)/fever Albuterol/Ipratropium (Duoneb 3.0-0.5 Mg/3 Ml) 3 ml NEB Q4H PRN PRN Reason: Shortness of Breath Last Admin: 01/07/20 21:29 Dose: 3 ml Amiodarone HCl (Cordarone) 200 mg PO DAILY [facility] Last Admin: 01/09/20 08:21 Dose: 200 mg Atorvastatin Calcium (Lipitor) 80 mg PO BEDTIME [facility] Last Admin: 01/08/20 20:31 Dose: 80 mg Benzonatate (Tessalon Perles) 100 mg PO TID PRN PRN Reason: Cough Last Admin: 01/08/20 20:31 Dose: 100 mg Dimethicone/Zinc Oxide (Rash Relief-Zinc Oxide [place]) 0 gm TOP ASDIRECTED PRN PRN Reason: Inflammation Last Admin: 01/08/20 16:51 Dose: 1 applic Diphenoxylate HCl/Atropine (Lomotil 0.025-2.5 Mg) 1 tab PO QID PRN PRN Reason: Diarrhea Last Admin: 01/08/20 16:54 Dose: 1 tab Doxycycline Hyclate (Vibramycin) 100 mg PO BID [facility] Last Admin: 01/09/20 08:21 Dose: 100 mg Lactobacillus Rhamnosus (Culturelle) 1 cap PO BID [facility] Last Admin: 01/09/20 08:21 Dose: 1 cap Melatonin (Melatonin) 3 mg PO BEDTIME PRN PRN Reason: SLEEP Ondansetron HCl (Zofran) 4 mg IV Q4H PRN PRN Reason: Nausea/Vomiting Pantoprazole Sodium (Protonix Iv) 40 mg IV Q12H [facility] Last Admin: 01/09/20 04:16 Dose: 40 mg Polyethylene Glycol (Miralax) 17 gm PO DAILY PRN PRN Reason: Constipation Sodium Chloride (Saline Flush) 10 ml FLUSH ASDIRECTED PRN PRN Reason: Keep Vein Open Discontinued Medications Sodium Chloride (Normal Saline) 1,000 mls @ 75 mls/hr IV ASDIRECTED [facility] Calcium Gluconate 2 gm/ Sodium (Chloride) 120 mls @ 90 mls/hr IV ONETIME ONE Stop: 01/07/20 17:19 Last Admin: 01/07/20 16:24 Dose: 90 mls/hr Calcium Gluconate 2 gm/ Sodium (Chloride) 120 mls @ 100 mls/hr IV ONETIME ONE Stop: 01/07/20 23:11 Last Admin: 01/07/20 21:28 Dose: 100 mls/hr Calcium Gluconate 2 gm/ Sodium (Chloride) 120 mls @ 100 mls/hr IV ONETIME ONE Stop: 01/08/20 06:54 Last Admin: 01/08/20 06:12 Dose: 100 mls/hr - Exam General: Reports: Alert, Oriented, Cooperative, No Acute Distress Lungs: Reports: Clear to Auscultation, Normal Respiratory Effort Cardiovascular: Reports: Regular Rate, Regular Rhythm, No Murmurs GI/Abdominal Exam: Soft, Non-Tender, No Organomegaly, No Distention Extremities: Non-Tender, Pedal Edema *Q Meaningful Use (DIS) - VTE *Q VTE Pharmacological Contraindications *Q: Active Hemorrhage
== END 2020-01-09 15:00 | disposition home or self-care (01) | DRG 812 ==
LOC: JP.NPNELAB 11:27 → JP.MS 14:25
PROVIDERS: ADMIT Hospitalist; ATTEND Hospitalist
PROC: 30233N1 Transfusion of Nonautologous Red Blood Cells into Peripheral Vein, Percutaneous Approach (ICD-10-PCS; principal; 2020-01-07)
DX: D64.9 Anemia, unspecified (principal); D61.818 Other pancytopenia; N18.3 Chronic kidney disease, stage 3 (moderate); R19.7 Diarrhea, unspecified; D69.6 Thrombocytopenia, unspecified; H54.7 Unspecified visual loss; I25.2 Old myocardial infarction; Z95.5 Presence of coronary angioplasty implant and graft; Z87.01 Personal history of pneumonia (recurrent); M19.90 Unspecified osteoarthritis, unspecified site; Z87.891 Personal history of nicotine dependence; Z79.82 Long term (current) use of aspirin; Z79.899 Other long term (current) drug therapy
CPT/HCPCS: 36415; 36430; 80048; 80053; 82330; 82607; 82728; 82746; 83550; 83615; 85018; 85025; 85027; 85045; 86850; 86900; 86901; 86920; 86922; 87046; 87077; 87493; 87899; 89055; 94640; 97161-GP; 97530-GP; A9270-GY; C9113; J0610; J7050; J7620-GY; P9016